=== PATIENT | female | born 1990 | race Caucasian/White ===

== ENCOUNTER 2018-02-28 19:02 | Emergency (ER) | payer OTHER ==
[~2018-02-28] VITALS: Ht 152.4 cm; Wt 80.3 kg
[2018-02-28 19:04] VITALS: Ht 152.4 cm; Wt 80.3 kg
[2018-02-28 22:24] VITALS: BP 129/94
== END 2018-02-28 22:24 | disposition home or self-care (01) ==
LOC: ED 19:02
DX: M94.0 Chondrocostal junction syndrome [Tietze] (principal); R07.89 Other chest pain; R06.2 Wheezing
CPT/HCPCS: 85378

== ENCOUNTER 2018-08-12 13:23 | Emergency (ER) | payer OTHER ==
[~2018-08-12] VITALS: Ht 160 cm; Wt 78.0 kg
[2018-08-12 13:29] VITALS: Ht 160 cm; Wt 78.0 kg
[2018-08-12 15:28] LABS: PLATELET COUNT 379 x10^3mcL (130-400)
[2018-08-12 15:34] LABS: CALCIUM 9.2 mg/dL (8.5-10.1); CARBON DIOXIDE 22.2 mmol/L (21-32); CHLORIDE SERUM 103 mmol/L (98-107); CREATININE SERUM 0.6 mg/dL (0.6-1.0); GFR1 > 60 mL/min; GLUCOSE SERUM 87 mg/dL (74-106); POTASSIUM SERUM 4.2 mmol/L (3.5-5.1); SODIUM SERUM 137 mmol/L (136-145)
[2018-08-12 15:36] LABS: RED CELL DISTRIBUTION WIDTH 14.6 % (11.5-14.5)
[2018-08-12 15:38] LABS: AMYLASE 40 U/L (25-115); LIPASE 92 IU/L (73-393)
[2018-08-12 16:02] LABS: C REACTIVE PROTEIN 16.7 mg/dL (<=0.9)
[2018-08-12 16:03] LABS: BAND NEUTROPHIL 0 % (0-10); BASOPHIL 0 % (0-2); MONOCYTE 4 % (0-7); SEGMENTED NEUTROPHILS 88 % (37-75)
[2018-08-12 16:04] LABS: PLATELET MORPHOLOGY PLATELETS NORMAL; rbc morphology (normal/abnorm) NORMAL (NORMAL)
[2018-08-12 21:14] VITALS: BP 124/79
== END 2018-08-12 21:14 | disposition home or self-care (01) ==
LOC: ED 13:23
PROVIDERS: Emergency Medicine
DX: J36 Peritonsillar abscess (principal)
CPT/HCPCS: 86308; J0696; J1100; J1885; J3490; J7030; J7060; J7512; Q9967